=== PATIENT | female | born 1980 | race Hispanic/Latino ===

== ENCOUNTER 2017-09-06 10:59 | Emergency (ER) | payer OTHER, SELFPAY ==
[2017-09-06 11:27] LABS: Bilirubin Moderate (Negative); Blood, Urine Large (Negative); Clarity Cloudy (Clear); Glucose, Urine (Dipstick) Negative (Negative); Leukocyte Negative (Negative); Nitrite Positive (Negative); Protein, Urine (Dipstick) 100 mg/dL (Neg-Trace)
[2017-09-06 11:36] LABS: Specific Gravity, Urine 1.025 (1.002-1.036)
[2017-09-06 11:37] LABS: Bacteria/HPF 2+ HPF (None Seen); RBC/HPF GREATER THAN 50-TNTC HPF (0-3); WBC/HPF 0-3 HPF (0-3)
[2017-09-06 12:21] LABS: #Basophils 0.1 thou/uL (0.0-0.2); #Eosinphils 0.1 thou/uL (0.0-0.7); #Lymphocytes 2.2 thou/uL (1.20-3.40); #Monocytes 0.5 thou/uL (0.11-0.59); #Neutrophils 6.9 thou/uL (1.40-6.50); %Basophils 0.8 % (0.0-1.0); %Eosinophils 0.7 % (0.0-10.0); %Lymphocytes 22.5 % (21.0-51.0); Hemoglobin 12.7 g/dL (12.0-16.0); Mean Corpuscular HGB CONC 33.2 g/dL (32.0-36.0); Mean Corpuscular Hemoglobin 30.6 pg (27.0-31.0); Mean Corpuscular Volume 92.1 fl (81.0-99.0); Mean Platelet Volume 7.6 fL (7.4-10.4); Platelet Count 262 thou/uL (130-400); RBC Distribution Width 11.7 % (11.5-14.5); Red Blood Cell (RBC) Count 4.15 mill/uL (4.20-5.40); White Blood Cell (WBC) Count 9.7 thou/uL (4.8-10.8)
[2017-09-06] MEDS ORDERED: Ondansetron PF 4 MG/2 ML Vial ONE (12:37)
[2017-09-06] MEDS ORDERED: Morphine 10 MG/ML VIAL ONE (12:37)
[2017-09-06 12:41] LABS: ALT (SGPT) 12 U/L (8-55); AST (SGOT) 14 U/L (5-34); Albumin 4.6 g/dL (3.5-5.0); Alkaline Phosphatase 47 U/L (40-150); Anion Gap 15 mmol/L (10-20); BUN (Urea Nitrogen) 9 mg/dL (7.0-18.7); Bilirubin, Total 0.5 mg/dL (0.2-1.2); Calc. Creatinine Clearance 0 mL/min (70-130); Calcium 9.6 mg/dL (7.8-10.44); Carbon Dioxide 22 mmol/L (22-29); Chloride 105 mmol/L (98-107); Estimated GFR-MDRD Greater than 90; Globulin 2.8 g/dL (2.4-3.5); Glucose 88 mg/dL (70-105); Lipase 25 U/L (8-78); Potassium 3.5 mmol/L (3.5-5.1); Protein, Total 7.4 g/dL (6.0-8.3); Sodium 138 mmol/L (136-145)
--- NOTE | 2017-09-06 13:31 | CT ---
CT STONE PROTOCOL: HISTORY: Left-sided abdominal pain, CVA pain. FINDINGS: Comparison is made with the exam of 04/04/15. Absence of oral and IV contrast reduces the sensitivity of the exam, particularly for evaluation of s olid organs involved. The lung bases are clear. No free air or free fluid is seen in the abdomen or pelvis. No calcified gallstones are identified. The patient is post cholecystectomy. No calculi are seen in the kidneys or ureters. No hydroureteral nephrosis noted on either side. There is a 2 mm calculus in the depende nt aspect of the urinary bladder close to the left UPJ. No acute osseous abnormalities are seen. IMPRESSION: A 2 mm calculus in the urinary bladder, likely recently passed from the left kidney/ureter. POS: JAMILA
== END 2017-09-06 13:20 | disposition home or self-care (01) ==
LOC: SCSER 10:59
DX: N21.0 Calculus in bladder (principal); N23 Unspecified renal colic; F17.210 Nicotine dependence, cigarettes, uncomplicated
CPT/HCPCS: 74176; 80053; 81003; 81015; 83690; 85025; 87077; 87086; 96374; 96375; J2270; J2405

== ENCOUNTER 2017-10-16 22:28 | Emergency (ER) | payer SELFPAY ==
[2017-10-16] MEDS ORDERED: Morphine 10 MG/ML VIAL ONE (22:50)
[2017-10-16] MEDS ORDERED: Ondansetron HCl/PF 4 MG/2 ML Vial ONE (22:50)
--- NOTE | 2017-10-16 23:04 | CT ---
CT OF THE ABDOMEN AND PELVIS WITHOUT CONTRAST: 10/16/17 COMPARISON: 09/06/17 HISTORY: Left flank pain and suprapubic pain that began on 10/13/17. Patient has a history of kidney stones and the pain is similar to the presentation previously with kidney stones. TECHNIQUE: Multiple contiguous axial images were obtained in a CT of the abdomen and pelvis without contrast. Co gigi reformats were performed. FINDINGS: The liver, gallbladder, kidneys, adrenal glands, spleen, and pancreas are unremarkable. No calcificat ions are seen in either kidney or along the course of the ureters. No hydronephrosis is present. No c alcifications are seen in the urinary bladder. The patient is status post partial hysterectomy. A well circumscribed mass on the left pelvic sidewal l likely represents a follicle in the left ovary measuring 2.8 cm in size. The large and small bowel are unremarkable. The appendix is normal. No abdominal or pelvic lymphadenopathy are seen. The osseous structures, visualized inferior thorax and abdominal wall soft tissues are unremarkable. IMPRESSION: No evidence of acute intra-abdominal/pelvic abnormality. POS: DIONTE
[2017-10-16 23:08] LABS: #Basophils 0.1 thou/uL (0.0-0.2); #Eosinphils 0.2 thou/uL (0.0-0.7); #Lymphocytes 3.5 thou/uL (1.20-3.40); #Monocytes 0.7 thou/uL (0.11-0.59); #Neutrophils 6.8 thou/uL (1.40-6.50); %Eosinophils 1.5 % (0.0-10.0); %Lymphocytes 31.3 % (21.0-51.0); %Monocytes 6.1 % (0.0-10.0); %Neutrophils 60.1 % (42.0-75.0); Hemoglobin 12.9 g/dL (12.0-16.0); Mean Corpuscular HGB CONC 34.3 g/dL (32.0-36.0); Mean Corpuscular Hemoglobin 31.4 pg (27.0-31.0); Mean Corpuscular Volume 91.6 fl (81.0-99.0); Platelet Count 279 thou/uL (130-400); RBC Distribution Width 12.1 % (11.5-14.5); Red Blood Cell (RBC) Count 4.09 mill/uL (4.20-5.40); White Blood Cell (WBC) Count 11.3 thou/uL (4.8-10.8)
[2017-10-16 23:11] LABS: Bilirubin Negative (Negative); Blood, Urine Negative (Negative); Clarity Clear (Clear); Glucose, Urine (Dipstick) Negative (Negative); Leukocyte Negative (Negative); Nitrite Negative (Negative); Protein, Urine (Dipstick) Negative (Neg-Trace); Specific Gravity, Urine 1.015 (1.005-1.030); Urobilinogen 0.2 mg/dL (0.2-1.0)
[2017-10-16 23:12] LABS: Pregnancy Test - Urine (BHCG) Negative (Negative); Pregu Control Background? CLEAR/WHITE (CLR/WHITE); Pregu Control Bar Appear? YES (CONTROL BAR); Specific Gravity 1.015 (1.002-1.036)
[2017-10-16 23:18] LABS: ALT (SGPT) 16 U/L (8-55); AST (SGOT) 17 U/L (5-34); Albumin 4.7 g/dL (3.5-5.0); Alkaline Phosphatase 60 U/L (40-150); Anion Gap 15 mmol/L (10-20); BUN (Urea Nitrogen) 6 mg/dL (7.0-18.7); Bilirubin, Total 0.2 mg/dL (0.2-1.2); Calc. Creatinine Clearance 0 mL/min (70-130); Calcium 9.4 mg/dL (7.8-10.44); Carbon Dioxide 23 mmol/L (22-29); Chloride 109 mmol/L (98-107); Estimated GFR-MDRD Greater than 90; Glucose 103 mg/dL (70-105); Potassium 3.8 mmol/L (3.5-5.1); Protein, Total 7.7 g/dL (6.0-8.3); Sodium 143 mmol/L (136-145)
== END 2017-10-17 00:03 | disposition home or self-care (01) ==
LOC: SCSER 22:28
DX: M54.5 Low back pain (principal); F17.210 Nicotine dependence, cigarettes, uncomplicated; Z71.6 Tobacco abuse counseling
CPT/HCPCS: 74176; 80053; 81003; 81025; 85025; 87086; 96361; 96374; 96375; 99406; J2270; J2405

== ENCOUNTER 2019-05-19 02:38 | Emergency (ER) | payer OTHER ==
[2019-05-19 03:01] LABS: Bilirubin Negative (Negative); Blood, Urine Trace (Negative); Clarity Slightly Cloudy (Clear); Glucose, Urine (Dipstick) Negative (Negative); Leukocyte Small (Negative); Nitrite Negative (Negative); Protein, Urine (Dipstick) Negative (Neg-Trace); Urobilinogen 0.2 mg/dL (Less than 2)
[2019-05-19] MEDS ORDERED: Ketorolac Tromethamine 30 MG/ML VIAL ONE (03:01)
[2019-05-19 03:07] LABS: Bacteria/HPF None Seen HPF (None Seen); RBC/HPF 0-3 HPF (0-3); Squamous Epithelial 0-3 HPF (0-3)
[2019-05-19 03:18] LABS: #Basophils 0.1 thou/uL (0.0-0.2); #Eosinphils 0.1 thou/uL (0.0-0.7); #Lymphocytes 1.8 thou/uL (1.20-3.40); #Monocytes 0.7 thou/uL (0.11-0.59); #Neutrophils 9.2 thou/uL (1.40-6.50); %Basophils 0.8 % (0.0-1.0); %Eosinophils 0.5 % (0.0-10.0); %Lymphocytes 15.1 % (21.0-51.0); %Monocytes 5.8 % (0.0-10.0); %Neutrophils 77.8 % (42.0-75.0); Hemoglobin 13.9 g/dL (12.0-16.0); Mean Corpuscular HGB CONC 33.6 g/dL (32.0-36.0); Mean Corpuscular Hemoglobin 31.6 pg (27.0-31.0); Mean Corpuscular Volume 93.9 fL (78.0-98.0); Mean Platelet Volume 7.6 fL (7.4-10.4); Platelet Count 290 thou/uL (130-400); RBC Distribution Width 12.8 % (11.5-14.5); Red Blood Cell (RBC) Count 4.41 mill/uL (4.20-5.40); White Blood Cell (WBC) Count 11.8 thou/uL (4.8-10.8)
[2019-05-19 03:21] LABS: Pregnancy Test - Urine (BHCG) Negative (Negative); Pregu Control Background? CLEAR/WHITE (CLR/WHITE); Pregu Control Bar Appear? YES (CONTROL BAR)
[2019-05-19 03:31] LABS: ALT (SGPT) 52 U/L (8-55); AST (SGOT) 29 U/L (5-34); Albumin 4.4 g/dL (3.5-5.0); Alkaline Phosphatase 84 U/L (40-110); Anion Gap 14 mmol/L (10-20); BUN (Urea Nitrogen) 5 mg/dL (7.0-18.7); Bilirubin, Total 0.2 mg/dL (0.2-1.2); Calc. Creatinine Clearance 0 mL/min (70-130); Calcium 9.7 mg/dL (7.8-10.44); Carbon Dioxide 24 mmol/L (22-29); Chloride 107 mmol/L (98-107); Estimated GFR-MDRD Greater than 90; Globulin 2.7 g/dL (2.4-3.5); Glucose 143 mg/dL (70-105); Potassium 3.6 mmol/L (3.5-5.1); Protein, Total 7.1 g/dL (6.0-8.3); Sodium 141 mmol/L (136-145)
--- NOTE | 2019-05-19 08:28 | CT ---
PRELIMINARY REPORT/[facility]/EMERGENCY AFTER HOURS PROCEDURE: PROCEDURE INFORMATION: Exam: CT Abdomen And Pelvis Without Contrast Exam date and time: 05/19/2019 3:13 AM Clinical history: 39 years old, female; Abdominal pain; Patient HX: PT presents to er complaining of dysuria, frequency, and urgency x 4 days. Denies fever at home. Reports right flank/back pain and chano n and pain in her bladder when she urinates. PT took tylenol at 2100. Surgical history of hysterectomy, notes: Partial, cervical biopsy, surgical history of section, notes: X 4. TECHNIQUE: Imaging protocol: Computed tomography of the abdomen and pelvis without contrast. COMPARISON: No relevant prior studies available. FINDINGS: Lungs: There is subpleural atelectasis of the dependent portions of the lungs. Liver: There are no focal liver lesions identified. Gallbladder and bile ducts: The gallbladder is contracted but otherwise normal. Pancreas: The pancreas appears normal. No ductal dilatation. Spleen: The spleen is normal. Adrenals: The adrenal glands are normal. Kidneys and ureters: Normal. No hydronephrosis. Stomach and bowel: The stomach is normal. The duodenum is unremarkable. There is no evidence of intes tinal perforation or obstruction. There is mild colonic constipation. Appendix: A normal appendix is identified. Intraperitoneal space: Unremarkable. No free air. No significant fluid collection. Vasculature: Unremarkable. No abdominal aortic aneurysm. Lymph nodes: Unremarkable. No enlarged lymph nodes. Bladder: The bladder is normal. Reproductive: There is a complex cyst within the left ovary measuring 2.9 cm, incompletely evaluated with CT. Uterus is nonvisualized. Bones/joints: Unremarkable. No acute fracture. Soft tissues: Unremarkable. IMPRESSION: 1. No definite acute abdominal pelvic pathology. 2. Indeterminate left ovarian cyst, incompletely evaluated with CT. Thank you for allowing us to participate in the care of your patient. Dictated and Authenticated by: Marc Marroquin MD 05/19/2019 4:10 AM Central Time ([place] & [place]) FINAL REPORT CT ABDOMEN AND PELVIS WITHOUT CONTRAST: FINDINGS/IMPRESSION: I agree with the findings and impression given in the preliminary report per [facility] physician. There is an indeterminate left renal mass measuring 2.9 cm in diameter, but measuring 5.9 cm in length. No de finite uterus is seen and the patient may have had a prior hysterectomy. A MRI of the pelvis without and with contrast is recommended for further evaluation of the left adnexal mass, which could potenti ally represent an ovarian mass.
== END 2019-05-19 04:27 | disposition home or self-care (01) ==
LOC: SCSER 02:38
DX: R30.0 Dysuria (principal); N83.202 Unspecified ovarian cyst, left side; F17.210 Nicotine dependence, cigarettes, uncomplicated
CPT/HCPCS: 74176; 80053; 81003; 81015; 81025; 83605; 85025; 96361; 96374; J1885

== ENCOUNTER 2020-02-15 01:17 | Emergency (ER) | payer BC, OTHER | END 2020-02-15 01:50 | disposition home or self-care (01) | LOC: ERS 01:17 | DX: J02.9 Acute pharyngitis, unspecified (principal); R05 Cough; Z20.828 Contact with and (suspected) exposure to other viral communicable diseases; E11.9 Type 2 diabetes mellitus without complications; F17.210 Nicotine dependence, cigarettes, uncomplicated; Z79.84 Long term (current) use of oral hypoglycemic drugs; Z79.899 Other long term (current) drug therapy | CPT/HCPCS: 87635; 99283; U0003 ==

== ENCOUNTER 2020-06-07 08:36 | Outpatient (CLI) | payer BC, OTHER ==
--- NOTE | 2020-06-07 10:10 | RAD ---
LUMBAR SPINE 2 VIEWS: Date: 06/07/2020 INDICATION: History of low back pain. COMPARISON: Prior abdominal pelvis CT with coronal and sagittal reformatted imaging on 05/19/2019. FINDINGS: There are five lumbar-type vertebra. The spinal alignment is normal. Vertebral body heights are josemanuel l appearing. SI joints are normal appearing. Bowel gas pattern is unobstructed. Lung bases are clear. IMPRESSION: Normal lumbar spinal radiograph. POS: BH
== END 2020-06-07 08:37 | disposition home or self-care (01) ==
LOC: BICRAD 08:36
PROVIDERS: ATTEND Family Medicine
DX: M54.5 Low back pain (principal)
CPT/HCPCS: 36415; 72100; 80053; 80061; 82043; 83036

== ENCOUNTER 2022-11-15 09:06 | Observation (INO) | payer OTHER ==
[2022-11-15] MEDS ORDERED: Iopamidol 370 76% 100 ML VIAL ONE (10:29)
[2022-11-15 10:52] LABS: #Basophils 0.1 thou/uL (0.0-0.2); #Lymphocytes 2.4 thou/uL (1.20-3.40); #Monocytes 0.5 thou/uL (0.11-0.59); #Neutrophils 7.2 thou/uL (1.40-6.50); %Basophils 0.6 % (0.0-1.0); %Eosinophils 0.4 % (0.0-10.0); %Lymphocytes 23.2 % (21.0-51.0); %Monocytes 5.1 % (0.0-10.0); %Neutrophils 70.8 % (42.0-75.0); Hemoglobin 13.7 g/dL (12.0-16.0); Mean Corpuscular HGB CONC 34.5 g/dL (32.0-36.0); Mean Corpuscular Hemoglobin 32.2 pg (27.0-31.0); Mean Corpuscular Volume 93.3 fl (78.0-98.0); Mean Platelet Volume 7.4 fL (7.4-10.4); Platelet Count 341 10x3/uL (130-400); RBC Distribution Width 11.9 % (11.5-14.5); Red Blood Cell (RBC) Count 4.25 mill/uL (4.20-5.40); White Blood Cell (WBC) Count 10.1 10x3/uL (4.8-10.8)
[2022-11-15 11:19] LABS: ALT (SGPT) 34 U/L (8-55); AST (SGOT) 16 U/L (5-34); Albumin 4.7 g/dL (3.5-5.0); Alkaline Phosphatase 67 U/L (40-110); Anion Gap 12 mmol/L (10-20); BUN (Urea Nitrogen) 7 mg/dL (7.0-18.7); Bilirubin, Total 0.3 mg/dL (0.2-1.2); Calc. Creatinine Clearance 0 mL/min (70-130); Calcium 9.8 mg/dL (7.8-10.44); Carbon Dioxide 21 mmol/L (22-29); Chloride 108 mmol/L (98-107); Estimated GFR 108; Glucose 170 mg/dL (70-105); Potassium 3.8 mmol/L (3.5-5.1); Protein, Total 7.7 g/dL (6.0-8.3); Sodium 137 mmol/L (136-145)
[2022-11-15] MEDS ORDERED: Ketorolac Tromethamine 30 MG/ML VIAL ONE (11:33)
[2022-11-15] MEDS ORDERED: Ondansetron PF 4 MG/2 ML Vial ONE (11:33)
[2022-11-15] MEDS ORDERED: Aspirin Chewable 81 MG TAB ONE (11:51)
[2022-11-15] MEDS ORDERED: hydrALAZINE 20 MG/ML VIAL SLOW IVP PRN (11:58)
[2022-11-15] MEDS ORDERED: Senokot S 8.6-50 MG TAB PO PRN (12:08)
[2022-11-15] MEDS ORDERED: Ondansetron PF 4 MG/2 ML Vial IVP PRN (12:08)
[2022-11-15] MEDS ORDERED: Ondansetron ODT 4 MG TAB PO PRN (12:08)
[2022-11-15] MEDS ORDERED: Calcium Carbonate 500 MG ChewTAB PO PRN (12:08)
[2022-11-15] MEDS ORDERED: Acetaminophen 325 MG TAB ONE (13:11)
[2022-11-15] MEDS: Acetaminophen 325 MG TAB PO PRN (13:12)
[2022-11-15] MEDS: Sodium Chloride 0.9% 1,000 ML IV SCH (13:12)
[2022-11-15] MEDS ORDERED: Dextrose 50% Abboject 50 ML SYRINGE SLOW IVP PRN (13:52)
[2022-11-15] MEDS ORDERED: Insulin Regular 300 UNITS/3 ML VIAL SC PRN ×2 (13:52)
[2022-11-15] MEDS ORDERED: Dextrose 5% in Water 1,000 ML IV PRN (13:52)
[2022-11-15] MEDS ORDERED: Gabapentin 300 MG CAP PO SCH (14:00)
[2022-11-15 16:25] VITALS: BMI 29.4
[2022-11-15 18:31] LABS: Bacteria/HPF None Seen HPF (None Seen); Bilirubin Negative (Negative); Blood, Urine Negative (Negative); Clarity Clear (Clear); Glucose, Urine (Dipstick) Normal (Negative); Ketone, Urine Negative (Negative); Leukocyte Negative Leu/uL (Negative); Nitrite Negative (Negative); Protein, Urine (Dipstick) Negative (Neg-Trace); RBC/HPF 0-3 HPF (0-3); Specific Gravity, Urine 1.022 (1.002-1.036); Squamous Epithelial 0-3 HPF (0-3); Urobilinogen Normal mg/dL (Less than 2); WBC/HPF 0-3 HPF (0-3)
[2022-11-15 18:33] LABS: Amphetamine Not Detected (NotDetected); Barbiturates Screen Not Detected (NotDetected); Benzodiazepine Screen Not Detected (NotDetected); Cocaine Metabolite Screen Not Detected (NotDetected); Methadone Not Detected (NotDetected); Methamphetamine Not Detected (NotDetected); Opiate Screen Not Detected (NotDetected); Oxycodone Screen Not Detected (NotDetected); Phencyclidine (PCP) Not Detected (NotDetected); THC/Cannabinoid Screen Not Detected (NotDetected); Tricyclic Screen Not Detected (NotDetected)
[2022-11-15] MEDS ORDERED: Ketorolac Tromethamine 30 MG/ML VIAL IVP SCH (18:45)
[2022-11-15 19:06] LABS: SARS-CoV-2 NAA Rapid Test Not Detected (NotDetected)
[2022-11-15] MEDS: Gabapentin 300 MG CAP PO SCH (20:34)
[2022-11-15] MEDS: Famotidine 20 MG TAB PO SCH (20:34)
[2022-11-15] MEDS: Atorvastatin Calcium 40 MG TAB PO SCH (20:34)
[2022-11-16] MEDS ORDERED: Ketorolac Tromethamine 30 MG/ML VIAL IVP SCH ×2 (04:45→20:00)
[2022-11-16] MEDS: Sodium Chloride 0.9% 1,000 ML IV SCH (04:48)
[2022-11-16 05:42] LABS: #Eosinphils 0.1 thou/uL (0.0-0.7); #Lymphocytes 2.6 thou/uL (1.20-3.40); #Monocytes 0.7 thou/uL (0.11-0.59); #Neutrophils 10.1 thou/uL (1.40-6.50); %Basophils 0.3 % (0.0-1.0); %Eosinophils 0.7 % (0.0-10.0); %Lymphocytes 19.2 % (21.0-51.0); %Monocytes 4.9 % (0.0-10.0); %Neutrophils 74.9 % (42.0-75.0); Hemoglobin 12.3 g/dL (12.0-16.0); Mean Corpuscular HGB CONC 34.7 g/dL (32.0-36.0); Mean Corpuscular Hemoglobin 32.7 pg (27.0-31.0); Mean Corpuscular Volume 94.2 fl (78.0-98.0); Mean Platelet Volume 7.4 fL (7.4-10.4); Platelet Count 281 10x3/uL (130-400); Red Blood Cell (RBC) Count 3.77 mill/uL (4.20-5.40); White Blood Cell (WBC) Count 13.5 10x3/uL (4.8-10.8)
[2022-11-16 05:59] LABS: Anion Gap 13 mmol/L (10-20); BUN (Urea Nitrogen) 8 mg/dL (7.0-18.7); Calc. Creatinine Clearance 132 mL/min (70-130); Calcium 8.4 mg/dL (7.8-10.44); Carbon Dioxide 18 mmol/L (22-29); Cardiac Risk 3.8 (Less than 4.5); Chloride 110 mmol/L (98-107); Cholesterol 147 mg/dl (< 200 Desired); Estimated GFR 116; Glucose 161 mg/dL (70-105); HDL Cholesterol 39 mg/dL (>60 Neg Risk); LDL Cholesterol, Calculated 85 mg/dL; Potassium 4.2 mmol/L (3.5-5.1); Sodium 137 mmol/L (136-145); Triglycerides 115 mg/dL (Less than 150)
[2022-11-16 09:16] LABS: D-Dimer Test 0.32 *mcg/mL (0.27-0.43); INR-International Normal Ratio 0.9; PTT 28.2 sec (22.9-36.1); Prothrombin Time 12.5 sec (12.0-14.7)
[2022-11-16] MEDS: Famotidine 20 MG TAB PO SCH ×2 (09:39→20:10)
[2022-11-16] MEDS: Gabapentin 300 MG CAP PO SCH ×2 (09:39→20:10)
[2022-11-16] MEDS: Aspirin 325 mg Enteric Coated Tablet PO SCH (09:39)
[2022-11-16] MEDS ORDERED: traMADol HCl 50 MG TAB PO SCH ×2 (10:30→15:45)
[2022-11-16] MEDS ORDERED: Metoclopramide HCl 10 MG/2 ML VIAL IVP SCH (20:00)
[2022-11-16] MEDS: Atorvastatin Calcium 40 MG TAB PO SCH (20:10)
[2022-11-17] MEDS: Ketorolac Tromethamine 30 MG/ML VIAL IVP PRN ×3 (05:02→20:42)
[2022-11-17 06:30] LABS: #Basophils 0.1 thou/uL (0.0-0.2); #Eosinphils 0.1 thou/uL (0.0-0.7); #Lymphocytes 2.7 thou/uL (1.20-3.40); #Monocytes 0.5 thou/uL (0.11-0.59); #Neutrophils 5.7 thou/uL (1.40-6.50); %Basophils 0.8 % (0.0-1.0); %Eosinophils 1.3 % (0.0-10.0); %Lymphocytes 29.8 % (21.0-51.0); %Monocytes 5.7 % (0.0-10.0); %Neutrophils 62.3 % (42.0-75.0); Mean Corpuscular HGB CONC 35.4 g/dL (32.0-36.0); Mean Corpuscular Hemoglobin 33.4 pg (27.0-31.0); Mean Corpuscular Volume 94.5 fl (78.0-98.0); Mean Platelet Volume 7.4 fL (7.4-10.4); Platelet Count 261 10x3/uL (130-400); RBC Distribution Width 11.9 % (11.5-14.5); Red Blood Cell (RBC) Count 3.59 mill/uL (4.20-5.40); White Blood Cell (WBC) Count 9.1 10x3/uL (4.8-10.8)
[2022-11-17 06:40] LABS: Anion Gap 9 mmol/L (10-20); BUN (Urea Nitrogen) 5 mg/dL (7.0-18.7); Calc. Creatinine Clearance 135 mL/min (70-130); Calcium 8.7 mg/dL (7.8-10.44); Carbon Dioxide 25 mmol/L (22-29); Chloride 107 mmol/L (98-107); Estimated GFR 116; Glucose 141 mg/dL (70-105); Potassium 3.9 mmol/L (3.5-5.1); Sodium 137 mmol/L (136-145)
[2022-11-17] MEDS: Acetaminophen 325 MG TAB PO PRN ×2 (09:06→16:32)
[2022-11-17] MEDS: Famotidine 20 MG TAB PO SCH ×2 (09:07→20:41)
[2022-11-17] MEDS: Aspirin 325 mg Enteric Coated Tablet PO SCH (09:08)
[2022-11-17] MEDS: Gabapentin 300 MG CAP PO SCH ×2 (09:08→20:41)
[2022-11-17] MEDS: Atorvastatin Calcium 40 MG TAB PO SCH (20:41)
[2022-11-18] MEDS: Acetaminophen 325 MG TAB PO PRN ×2 (04:02→12:58)
[2022-11-18] MEDS: Ketorolac Tromethamine 30 MG/ML VIAL IVP PRN (06:18)
[2022-11-18 07:15] LABS: #Eosinphils 0.1 thou/uL (0.0-0.7); #Lymphocytes 2.8 thou/uL (1.20-3.40); #Monocytes 0.6 thou/uL (0.11-0.59); #Neutrophils 6.7 thou/uL (1.40-6.50); %Basophils 0.3 % (0.0-1.0); %Eosinophils 1.3 % (0.0-10.0); %Lymphocytes 27.5 % (21.0-51.0); %Monocytes 5.6 % (0.0-10.0); %Neutrophils 65.3 % (42.0-75.0); Hemoglobin 12.2 g/dL (12.0-16.0); Mean Corpuscular HGB CONC 34.4 g/dL (32.0-36.0); Mean Corpuscular Hemoglobin 32.6 pg (27.0-31.0); Mean Corpuscular Volume 94.7 fl (78.0-98.0); Mean Platelet Volume 7.6 fL (7.4-10.4); Platelet Count 277 10x3/uL (130-400); RBC Distribution Width 11.8 % (11.5-14.5); Red Blood Cell (RBC) Count 3.74 mill/uL (4.20-5.40); White Blood Cell (WBC) Count 10.2 10x3/uL (4.8-10.8)
[2022-11-18 08:42] LABS: ALT (SGPT) 27 U/L (8-55); AST (SGOT) 15 U/L (5-34); Albumin 3.8 g/dL (3.5-5.0); Alkaline Phosphatase 66 U/L (40-110); Anion Gap 12 mmol/L (10-20); BUN (Urea Nitrogen) 8 mg/dL (7.0-18.7); Bilirubin, Total 0.4 mg/dL (0.2-1.2); Calc. Creatinine Clearance 130 mL/min (70-130); Calcium 8.8 mg/dL (7.8-10.44); Carbon Dioxide 23 mmol/L (22-29); Chloride 106 mmol/L (98-107); Estimated GFR 115; Globulin 2.3 g/dL (2.4-3.5); Glucose 141 mg/dL (70-105); Potassium 4.1 mmol/L (3.5-5.1); Protein, Total 6.1 g/dL (6.0-8.3); Sodium 137 mmol/L (136-145)
[2022-11-18] MEDS: Gabapentin 300 MG CAP PO SCH (09:10)
[2022-11-18] MEDS: Aspirin 325 mg Enteric Coated Tablet PO SCH (09:10)
[2022-11-18] MEDS: Famotidine 20 MG TAB PO SCH (09:11)
[2022-11-18 10:00] LABS: ALT (SGPT) 28 U/L (8-55); AST (SGOT) 18 U/L (5-34); Alkaline Phosphatase 64 U/L (40-110); Anion Gap 13 mmol/L (10-20); BUN (Urea Nitrogen) 8 mg/dL (7.0-18.7); Bilirubin, Total 0.4 mg/dL (0.2-1.2); Calc. Creatinine Clearance 119 mL/min (70-130); Carbon Dioxide 21 mmol/L (22-29); Chloride 105 mmol/L (98-107); Estimated GFR 113; Globulin 2.5 g/dL (2.4-3.5); Glucose 238 mg/dL (70-105); Lipase 60 U/L (8-78); Protein, Total 6.5 g/dL (6.0-8.3); Sodium 135 mmol/L (136-145)
[2022-11-18 16:26] VITALS: BP 104/74; TEMP 97.2
[2022-11-19 13:23] LABS: Cardiolipin IgA Ab 1.7 APL-U/mL (<14 Negative); Cardiolipin IgG Ab 0.7 GPL-U/mL (<10 Negative); Cardiolipin IgM Ab 1.6 MPL-U/mL (<10 Negative); EliA APS New Method **** NEW METHOD ****
== END 2022-11-18 18:46 | disposition home or self-care (01) ==
LOC: ERS 09:06 → ERHOLD 11:56 → NEURO 15:02
PROVIDERS: ADMIT Internal Medicine Nephrology; ATTEND Internal Medicine Nephrology
DX: F45.9 Somatoform disorder, unspecified (principal); G81.94 Hemiplegia, unspecified affecting left nondominant side; R50.9 Fever, unspecified; R51.9 Headache, unspecified; E11.9 Type 2 diabetes mellitus without complications; I10 Essential (primary) hypertension; E78.5 Hyperlipidemia, unspecified; F17.290 Nicotine dependence, other tobacco product, uncomplicated; G89.29 Other chronic pain; M54.50 Low back pain, unspecified; I08.1 Rheumatic disorders of both mitral and tricuspid valves; M79.605 Pain in left leg; Z79.84 Long term (current) use of oral hypoglycemic drugs; Z79.899 Other long term (current) drug therapy; Z88.0 Allergy status to penicillin; Z20.822 Contact with and (suspected) exposure to COVID-19
CPT/HCPCS: 36415; 36416; 70450; 70544; 70551; 71045; 71275; 72100; 72141; 72148; 74174; 80048; 80053; 80061; 80306; 81001; 83090; 83690; 84484; 85025; 85300; 85303; 85305; 85307; 85379; 85598; 85610; 85730; 86140; 86147; 87040; 93005; 93306; 93880; 96372; 96374; 96375; 96376; G0378; J1650; J1815; J1885; J2405; J2765; J7050; Q0162; Q9967

== ENCOUNTER 2023-02-28 22:40 | Emergency (ER) | payer OTHER ==
[2023-02-28] MEDS ORDERED: Ondansetron PF 4 MG/2 ML Vial ONE (23:30)
[2023-02-28 23:31] LABS: #Basophils 0.1 thou/uL (0.0-0.2); #Eosinphils 0.1 thou/uL (0.0-0.7); #Monocytes 0.5 thou/uL (0.11-0.59); #Neutrophils 5.9 thou/uL (1.40-6.50); %Basophils 0.5 % (0.0-1.0); %Lymphocytes 31.2 % (21.0-51.0); %Monocytes 5.5 % (0.0-10.0); %Neutrophils 61.6 % (42.0-75.0); Hematocrit 39.1 % (36.0-47.0); Hemoglobin 13.1 g/dL (12.0-16.0); Mean Corpuscular HGB CONC 33.5 g/dL (32.0-36.0); Mean Corpuscular Hemoglobin 30.8 pg (27.0-31.0); Mean Platelet Volume 9.6 fL (7.4-10.4); Platelet Count 316 10x3/uL (130-400); RBC Distribution Width 12.7 % (11.5-14.5); Red Blood Cell (RBC) Count 4.25 mill/uL (4.20-5.40); White Blood Cell (WBC) Count 9.6 10x3/uL (4.8-10.8)
[2023-02-28 23:54] LABS: ALT (SGPT) 17 U/L (8-55); AST (SGOT) 13 U/L (5-34); Albumin 4.6 g/dL (3.5-5.0); Alkaline Phosphatase 69 U/L (40-110); Anion Gap 14 mmol/L (10-20); BUN (Urea Nitrogen) 6 mg/dL (7.0-18.7); Bilirubin, Total 0.3 mg/dL (0.2-1.2); Calc. Creatinine Clearance 0 mL/min (70-130); Calcium 9.8 mg/dL (7.8-10.44); Carbon Dioxide 23 mmol/L (22-29); Chloride 105 mmol/L (98-107); Estimated GFR 114; Globulin 2.7 g/dL (2.4-3.5); Glucose 182 mg/dL (70-105); Potassium 3.5 mmol/L (3.5-5.1); Protein, Total 7.3 g/dL (6.0-8.3); Sodium 138 mmol/L (136-145)
[2023-02-28 23:56] LABS: Troponin I Less than 0.010 ng/mL (< 0.028)
[2023-03-01] MEDS ORDERED: Ketorolac Tromethamine 30 MG/ML VIAL ONE (00:17)
== END 2023-03-01 00:31 | disposition home or self-care (01) ==
LOC: ERS 22:40
DX: R53.1 Weakness (principal); E11.9 Type 2 diabetes mellitus without complications; I10 Essential (primary) hypertension; F17.290 Nicotine dependence, other tobacco product, uncomplicated
CPT/HCPCS: 36416; 71045; 80053; 84484; 85025; 93005; 96361; 96374; 96375; J1885; J2405

== ENCOUNTER 2023-03-11 06:22 | Emergency (ER) | payer OTHER ==
[2023-03-11] MEDS ORDERED: Ketorolac Tromethamine 30 MG/ML VIAL ONE (07:00)
[2023-03-11] MEDS ORDERED: Ondansetron PF 4 MG/2 ML Vial ONE (07:00)
[2023-03-11 07:09] LABS: #Basophils 0.1 thou/uL (0.0-0.2); #Eosinphils 0.1 thou/uL (0.0-0.7); #Monocytes 0.4 thou/uL (0.11-0.59); #Neutrophils 6.4 thou/uL (1.40-6.50); %Basophils 0.6 % (0.0-1.0); %Eosinophils 0.6 % (0.0-10.0); %Lymphocytes 21.5 % (21.0-51.0); %Monocytes 4.8 % (0.0-10.0); %Neutrophils 72.3 % (42.0-75.0); Hematocrit 39.9 % (36.0-47.0); Hemoglobin 13.5 g/dL (12.0-16.0); Mean Corpuscular HGB CONC 33.8 g/dL (32.0-36.0); Mean Corpuscular Volume 91.7 fl (78.0-98.0); Mean Platelet Volume 9.6 fL (7.4-10.4); Platelet Count 321 10x3/uL (130-400); RBC Distribution Width 12.7 % (11.5-14.5); Red Blood Cell (RBC) Count 4.35 mill/uL (4.20-5.40); White Blood Cell (WBC) Count 8.8 10x3/uL (4.8-10.8)
[2023-03-11 07:17] LABS: BHCG - Serum Negative (NEGATIVE); Pregs Control Background? CLEAR/WHITE (CLR/WHITE); Pregs Control Bar Appear? YES (CONTROL BAR)
[2023-03-11 07:32] LABS: ALT (SGPT) 21 U/L (8-55); AST (SGOT) 16 U/L (5-34); Albumin 4.7 g/dL (3.5-5.0); Alkaline Phosphatase 55 U/L (40-110); Anion Gap 11 mmol/L (10-20); BUN (Urea Nitrogen) 7 mg/dL (7.0-18.7); Bilirubin, Total 0.8 mg/dL (0.2-1.2); Calc. Creatinine Clearance 0 mL/min (70-130); Calcium 9.7 mg/dL (7.8-10.44); Carbon Dioxide 22 mmol/L (22-29); Chloride 103 mmol/L (98-107); Estimated GFR 112; Globulin 2.8 g/dL (2.4-3.5); Glucose 188 mg/dL (70-105); Potassium 3.4 mmol/L (3.5-5.1); Protein, Total 7.5 g/dL (6.0-8.3); Sodium 133 mmol/L (136-145)
[2023-03-11 07:42] LABS: Bilirubin Negative (Negative); Blood, Urine Negative (Negative); CAUTI Indications for Culture < 2yrs of age; Clarity Turbid (Clear); Glucose, Urine (Dipstick) 100 mg/dL (Negative); Ketone, Urine 60 mg/dL (Negative); Leukocyte 25 Leu/uL (Negative); Nitrite Negative (Negative); Protein, Urine (Dipstick) 30 mg/dL (Neg-Trace); RBC/HPF 0-3 HPF (0-3); Specific Gravity, Urine 1.031 (1.002-1.036); Squamous Epithelial 21-50 HPF (0-3); Urobilinogen Normal mg/dL (Less than 2); pH, Urine 5.5 (5.0-9.0)
[2023-03-11 07:43] LABS: Bacteria/HPF 1+ HPF (None Seen)
[2023-03-11 07:44] LABS: Urine Culture Reflex Yes Yes
[2023-03-11] MEDS ORDERED: Morphine 4 MG/ML VIAL ONE ×2 (07:55→10:59)
[2023-03-11] MEDS ORDERED: Ondansetron ODT 4 MG TAB ONE (10:59)
== END 2023-03-11 11:21 | disposition home or self-care (01) ==
LOC: ERS 06:22
DX: R10.9 Unspecified abdominal pain (principal); R82.71 Bacteriuria; E11.9 Type 2 diabetes mellitus without complications; I10 Essential (primary) hypertension; F17.290 Nicotine dependence, other tobacco product, uncomplicated; Z79.899 Other long term (current) drug therapy; Z79.84 Long term (current) use of oral hypoglycemic drugs
CPT/HCPCS: 36416; 74176; 76705; 80053; 81001; 83690; 84703; 85025; 87086; 96361; 96372; 96374; 96375; 96376; J1885; J2270; J2405; Q0162

== ENCOUNTER 2023-03-15 06:27 | Emergency (ER) | payer OTHER ==
[2023-03-15 07:15] LABS: #Eosinphils 0.1 thou/uL (0.0-0.7); #Monocytes 0.4 thou/uL (0.11-0.59); #Neutrophils 6.2 thou/uL (1.40-6.50); %Basophils 0.2 % (0.0-1.0); %Eosinophils 0.7 % (0.0-10.0); %Lymphocytes 19.4 % (21.0-51.0); %Monocytes 4.8 % (0.0-10.0); %Neutrophils 74.8 % (42.0-75.0); Hematocrit 39.8 % (36.0-47.0); Hemoglobin 13.4 g/dL (12.0-16.0); Mean Corpuscular HGB CONC 33.7 g/dL (32.0-36.0); Mean Corpuscular Hemoglobin 31.1 pg (27.0-31.0); Mean Corpuscular Volume 92.3 fl (78.0-98.0); Mean Platelet Volume 9.7 fL (7.4-10.4); Platelet Count 306 10x3/uL (130-400); RBC Distribution Width 12.6 % (11.5-14.5); Red Blood Cell (RBC) Count 4.31 mill/uL (4.20-5.40); White Blood Cell (WBC) Count 8.3 10x3/uL (4.8-10.8)
[2023-03-15 07:43] LABS: ALT (SGPT) 15 U/L (8-55); AST (SGOT) 13 U/L (5-34); Albumin 4.7 g/dL (3.5-5.0); Alkaline Phosphatase 51 U/L (40-110); Anion Gap 13 mmol/L (10-20); BUN (Urea Nitrogen) 8 mg/dL (7.0-18.7); Bilirubin, Total 0.5 mg/dL (0.2-1.2); Calc. Creatinine Clearance 0 mL/min (70-130); Calcium 9.7 mg/dL (7.8-10.44); Carbon Dioxide 21 mmol/L (22-29); Chloride 106 mmol/L (98-107); Estimated GFR 111; Globulin 2.8 g/dL (2.4-3.5); Glucose 136 mg/dL (70-105); Potassium 3.9 mmol/L (3.5-5.1); Protein, Total 7.5 g/dL (6.0-8.3); Sodium 136 mmol/L (136-145)
[2023-03-15] MEDS ORDERED: Morphine 4 MG/ML VIAL ONE (08:03)
[2023-03-15] MEDS ORDERED: cefTRIAXone (ROCEPHIN) 1 GM VIAL ONE (08:03)
[2023-03-15] MEDS ORDERED: Ondansetron PF 4 MG/2 ML Vial ONE ×2 (08:03→11:26)
[2023-03-15] MEDS ORDERED: Ketorolac Tromethamine 30 MG/ML VIAL ONE ×2 (08:03→11:26)
[2023-03-15 09:28] LABS: Bacteria/HPF 4+ HPF (None Seen); Bilirubin Negative (Negative); Blood, Urine Negative (Negative); CAUTI Indications for Culture Pelvic or flank pain; Clarity Clear (Clear); Glucose, Urine (Dipstick) Normal (Negative); Ketone, Urine Negative (Negative); Leukocyte Negative Leu/uL (Negative); Nitrite Negative (Negative); Protein, Urine (Dipstick) Negative (Neg-Trace); RBC/HPF 0-3 HPF (0-3); Urine Culture Reflex No No; Urobilinogen Normal mg/dL (Less than 2)
[2023-03-15] MEDS ORDERED: Acetaminophen 500 MG TAB ONE (09:41)
[2023-03-15 11:51] LABS: SARS-CoV-2 NAA Rapid Test Not Detected (NotDetected)
[2023-03-15] MEDS ORDERED: Iopamidol-370 76% 500 ML MDV (1 ML CHARGE) ONE (14:40)
== END 2023-03-15 12:19 | disposition home or self-care (01) ==
LOC: ERS 06:27
DX: B34.9 Viral infection, unspecified (principal); R10.9 Unspecified abdominal pain; R53.83 Other fatigue; E11.9 Type 2 diabetes mellitus without complications; I10 Essential (primary) hypertension; F17.290 Nicotine dependence, other tobacco product, uncomplicated; Z79.899 Other long term (current) drug therapy; Z20.822 Contact with and (suspected) exposure to COVID-19; Z79.84 Long term (current) use of oral hypoglycemic drugs
CPT/HCPCS: 36415; 74018; 74177; 80053; 81001; 83605; 85025; 87040; 87086; 96365; 96375; 96376; J0696; J1885; J2270; J2405; Q9967

== ENCOUNTER 2023-04-05 05:33 | Emergency (ER) | payer OTHER ==
[2023-04-05 06:25] LABS: #Eosinphils 0.1 thou/uL (0.0-0.7); #Monocytes 0.5 thou/uL (0.11-0.59); %Basophils 0.3 % (0.0-1.0); %Eosinophils 0.7 % (0.0-10.0); %Lymphocytes 25.6 % (21.0-51.0); %Monocytes 5.6 % (0.0-10.0); %Neutrophils 67.6 % (42.0-75.0); Hematocrit 37.4 % (36.0-47.0); Hemoglobin 12.4 g/dL (12.0-16.0); Mean Corpuscular HGB CONC 33.2 g/dL (32.0-36.0); Mean Corpuscular Hemoglobin 30.8 pg (27.0-31.0); Mean Corpuscular Volume 92.8 fl (78.0-98.0); Platelet Count 298 10x3/uL (130-400); RBC Distribution Width 12.8 % (11.5-14.5); Red Blood Cell (RBC) Count 4.03 mill/uL (4.20-5.40); White Blood Cell (WBC) Count 8.9 10x3/uL (4.8-10.8)
[2023-04-05 06:30] LABS: BHCG - Serum Negative (NEGATIVE)
[2023-04-05 06:31] LABS: Pregs Control Background? CLEAR/WHITE (CLR/WHITE); Pregs Control Bar Appear? YES (CONTROL BAR)
[2023-04-05 06:50] LABS: ALT (SGPT) 22 U/L (8-55); AST (SGOT) 14 U/L (5-34); Albumin 4.4 g/dL (3.5-5.0); Alkaline Phosphatase 45 U/L (40-110); Anion Gap 12 mmol/L (10-20); BUN (Urea Nitrogen) 5 mg/dL (7.0-18.7); Bilirubin, Total 0.5 mg/dL (0.2-1.2); Calc. Creatinine Clearance 0 mL/min (70-130); Calcium 9.6 mg/dL (7.8-10.44); Carbon Dioxide 23 mmol/L (22-29); Chloride 106 mmol/L (98-107); Estimated GFR 115; Globulin 2.6 g/dL (2.4-3.5); Glucose 147 mg/dL (70-105); Potassium 3.8 mmol/L (3.5-5.1); Sodium 137 mmol/L (136-145)
[2023-04-05 06:54] LABS: Troponin I Less than 0.010 ng/mL (< 0.028)
== END 2023-04-05 07:29 | disposition home or self-care (01) ==
LOC: ERS 05:33
DX: R00.2 Palpitations (principal); E11.9 Type 2 diabetes mellitus without complications; I10 Essential (primary) hypertension; Z79.84 Long term (current) use of oral hypoglycemic drugs; Z79.899 Other long term (current) drug therapy
CPT/HCPCS: 36415; 71045; 80053; 84484; 84703; 85025; 85379; 93005

== ENCOUNTER 2023-09-13 00:12 | Emergency (ER) | payer BC, OTHER ==
[2023-09-13 01:09] LABS: #Eosinphils 0.1 thou/uL (0.0-0.7); #Monocytes 0.5 thou/uL (0.11-0.59); #Neutrophils 5.2 thou/uL (1.40-6.50); %Basophils 0.4 % (0.0-1.0); %Eosinophils 1.2 % (0.0-10.0); %Lymphocytes 37.5 % (21.0-51.0); %Monocytes 5.3 % (0.0-10.0); %Neutrophils 55.3 % (42.0-75.0); Hematocrit 37.3 % (36.0-47.0); Hemoglobin 12.8 g/dL (12.0-16.0); Mean Corpuscular HGB CONC 34.3 g/dL (32.0-36.0); Mean Corpuscular Hemoglobin 31.8 pg (27.0-31.0); Mean Corpuscular Volume 92.8 fl (78.0-98.0); Mean Platelet Volume 9.4 fL (7.4-10.4); Platelet Count 288 10x3/uL (130-400); Red Blood Cell (RBC) Count 4.02 mill/uL (4.20-5.40); White Blood Cell (WBC) Count 9.4 10x3/uL (4.8-10.8)
[2023-09-13 01:28] LABS: ALT (SGPT) 18 U/L (8-55); AST (SGOT) 14 U/L (5-34); Albumin 4.6 g/dL (3.5-5.0); Alkaline Phosphatase 78 U/L (40-110); Anion Gap 13 mmol/L (10-20); BUN (Urea Nitrogen) 6 mg/dL (7.0-18.7); Bilirubin, Total 0.2 mg/dL (0.2-1.2); Calc. Creatinine Clearance 0 mL/min (70-130); Carbon Dioxide 22 mmol/L (22-29); Chloride 109 mmol/L (98-107); Estimated GFR 111; Globulin 2.6 g/dL (2.4-3.5); Glucose 190 mg/dL (70-105); Protein, Total 7.2 g/dL (6.0-8.3); Sodium 140 mmol/L (136-145)
[2023-09-13] MEDS ORDERED: Ondansetron PF 4 MG/2 ML Vial ONE ×2 (01:42→02:15)
[2023-09-13] MEDS ORDERED: Ketorolac Tromethamine 30 MG (1 mL) VIAL ONE (01:42)
[2023-09-13 01:58] LABS: Lipase 69 U/L (8-78)
[2023-09-13] MEDS ORDERED: Morphine 4 MG/ML VIAL ONE (02:15)
[2023-09-13 03:22] LABS: Bacteria/HPF 2+ HPF (None Seen); Bilirubin Negative (Negative); Blood, Urine Negative (Negative); CAUTI Indications for Culture Dysuria,urgency,freq; Clarity Clear (Clear); Glucose, Urine (Dipstick) 50 mg/dL (Negative); Ketone, Urine Negative (Negative); Leukocyte Negative Leu/uL (Negative); Nitrite Negative (Negative); Protein, Urine (Dipstick) Negative (Neg-Trace); RBC/HPF 0-3 HPF (0-3); Specific Gravity, Urine 1.007 (1.002-1.036); Squamous Epithelial 0-3 HPF (0-3); Urobilinogen Normal mg/dL (Less than 2); WBC/HPF 0-3 HPF (0-3); pH, Urine 5.5 (5.0-9.0)
[2023-09-13 03:23] LABS: Urine Culture Reflex No No
== END 2023-09-13 05:33 | disposition home or self-care (01) ==
LOC: ERS 00:12
DX: N39.0 Urinary tract infection, site not specified (principal); R10.30 Lower abdominal pain, unspecified; E78.5 Hyperlipidemia, unspecified; E11.9 Type 2 diabetes mellitus without complications; F17.290 Nicotine dependence, other tobacco product, uncomplicated; Z55.6 Problems related to health literacy; Z90.711 Acquired absence of uterus with remaining cervical stump; Z79.84 Long term (current) use of oral hypoglycemic drugs; Z79.899 Other long term (current) drug therapy
CPT/HCPCS: 36415; 74176; 76705; 80053; 81001; 83690; 85025; 96361; 96374; 96375; J1885; J2270; J2405